=== PATIENT | male | born 1990 | race Caucasian/White ===

== ENCOUNTER 2019-01-27 11:01 | Emergency (ER) | payer MEDICAID, OTHER ==
[~2019-01-27] VITALS: Ht 172.7 cm; Wt 80.7 kg
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
[2019-01-27] MEDS ORDERED: DEXAMETHASONE SOD PHOSPHATE 4 MG/ML VIAL IM ONE (12:00)
[2019-01-27] MEDS ORDERED: DEXAMETHASONE SOD PHOSPHATE 10 MG/ML VIAL ONE (12:06)
[2019-01-27 13:10] VITALS: BP 132/82
--- NOTE | 2019-01-27 13:10 | NUR ---
Patient discharged to home in stable condition. Written and verbal after care instructions given. Patient verbalizes understanding of instruction.
== END 2019-01-27 13:11 | disposition home or self-care (01) ==
LOC: ER 11:01
DX: L23.9 Allergic contact dermatitis, unspecified cause (principal)
CPT/HCPCS: 96372; 99283; J1100